=== PATIENT | female | born 1980 | race Caucasian/White ===

== ENCOUNTER 2017-05-17 14:21 | Emergency (ER) | payer MEDICAID ==
--- NOTE | 2017-05-17 14:37 | ED Physician Documentation ---
PD HPI HEADACHE - Stated complaint Stated Complaint: HEADACHE - Chief complaint Chief Complaint: Neuro - History obtained from History obtained from: Patient - History of Present Illness Timing - onset: Yesterday (has had sinus pressure and drainage for few months, with Augmentin and Flonase courses couple of times without improvement. Has worse sinus pain the past couple days, left sides periorbital and maxillary. With also some headache left sided, worse than migraines, but still with light sensitive component. No visual changes, fevers, focal deficits.) Timing - onset during: Light activity Timing - duration: Days Timing - details: Gradual onset, Waxing and waning Worst headache ever?: No: Worst headache ever? Location: Front (maxillary and periorbital), Left Quality: Throbbing, Aching Associated symptoms: Nausea, Vomiting (today). No: Fever, Weakness, Numbness, Eye pain, Vision changes Improved by: No: Meds (tried antiemetic she has for her mgiraines. Also OTC meds (tylenol and ibuprofen).) Worsened by: Light, Noise Contributing factors: Recent illness (sinus infection symptoms for past few months.). No: Trauma Recently seen: Clinic (a month ago, without improvement from Augmentin/Flonase.) Review of Systems Constitutional: denies: Fever, Chills, Myalgias Eyes: reports: Photophobia. denies: Loss of vision Ears: reports: Ear pain (left side). denies: Loss of hearing Nose: reports: Sinus pressure / pain. denies: Rhinorrhea / runny nose, Congestion Throat: denies: Sore throat Cardiac: denies: Chest pain / pressure, Palpitations Respiratory: denies: Dyspnea, Cough GI: reports: Nausea, Vomiting (today). denies: Diarrhea Skin: denies: Rash, Lesions Neurologic: reports: Headache. denies: Focal weakness, Numbness, Near syncope, Altered mental status, Head injury Endocrine: denies: Weight loss Immunocompromised: denies: Immunocompromised PD PAST MEDICAL HISTORY - Past Medical History Neuro: Headache/migraine Musculoskeletal: Osteoarthritis - Past Surgical History Past Surgical History: No - Present Medications Home Medications: Ambulatory Orders Medication Instructions Recorded Confirmed Azithromycin [Zithromax] 250 mg PO DAILY #6 tablet 05/17/17 Bcp 05/17/17 Cetirizine [ZyrTEC] 10 mg PO DAILY #20 tablet 05/17/17 Dexamethasone [Decadron] 4 mg PO DAILY #5 tablet 05/17/17 Oxycodone HCl/Acetaminophen 1 each PO Q6H PRN #15 tablet 05/17/17 [Percocet 5-325 mg Tablet] - Allergies Allergies/Adverse Reactions: Allergies Allergy/AdvReac Type Severity Reaction Status Date / Time Sulfa (Sulfonamide Allergy Intermediate Respiratory Verified 12/24/13 13:14 Antibiotics) acetaminophen [From Vicodin] AdvReac Mild Nausea Verified 12/24/13 13:14 hydrocodone bitartrate * AdvReac Mild Nausea Verified 12/24/13 13:14 [From Vicodin] - Social History Does the pt smoke?: Yes Smoking Status: Current every day smoker Does the pt drink ETOH?: No Does the pt have substance abuse?: No PD ED PE NORMAL - Vitals Vital signs reviewed: Yes - General General: Alert and oriented X 3, No acute distress, Well developed/nourished - HEENT HEENT: Ears normal, Moist mucous membranes, Pharynx benign, Dentition benign, Other (left maxillary sinus tender to percussion) - Neck Neck: Supple, no meningeal sign, No adenopathy - Cardiac Cardiac: RRR, No murmur - Respiratory Respiratory: Clear bilaterally - Abdomen Abdomen: Soft, Non tender - Derm Derm: Normal color, Warm and dry, No rash - Extremities Extremities: No deformity, Normal ROM s pain - Neuro Neuro: Alert and oriented X 3, No motor deficit, No sensory deficit, Normal speech Results - Vitals Vitals: Vital Signs - 24 hr 05/17/17 05/17/17 14:26 16:46 Temperature 36.4 C L Heart Rate 90 67 Respiratory 18 16 Rate Blood Pressure 116/77 122/71 O2 Saturation 100 98 Oxygen O2 Source Room air PD MEDICAL DECISION MAKING - ED course Complexity details: reviewed results, considered differential (seems like sinus focally left maxillary, and likely some component of migraine too today. Normal neuro. I did not see need for imaging at this time. ), d/w patient Departure - Departure Disposition: 01 Home, Self Care Clinical Impression: Sinusitis, acute maxillary Qualifiers: Recurrence: non-recurrent Qualified Code(s): J01.00 - Acute maxillary sinusitis , unspecified Migraine headache without aura Qualifiers: Status migrainosus presence: without status migrainosus Intractability: not intractable Qualified Code(s): G43.009 - Migraine without aura, not intractable , without status migrainosus Condition: Stable Record reviewed to determine appropriate education?: Yes Instructions: ED Sinusitis Abx Tx Follow-Up: Zehra Vazquez ARNP [Primary Care Provider] - Prescriptions: Dexamethasone [Decadron] 4 mg PO DAILY #5 tablet Oxycodone HCl/Acetaminophen [Percocet 5-325 mg Tablet] 1 each PO Q6H PRN #15 tablet PRN Reason: Pain Azithromycin [Zithromax] 250 mg PO DAILY #6 tablet Cetirizine [ZyrTEC] 10 mg PO DAILY #20 tablet Comments: Saline nose spray or drops to ensure the passageways days clear. Dexamethasone steroid daily for 5 more days to decrease sinus inflammation. Azithromycin antibiotic as directed. Cetirizine antihistamine to decrease some of the fluid and inflammation. Add Tylenol or pain medicine if needed for pain. your medicine for nausea as needed. Recheck if not improving over the next few days. Discharge Date/Time: 05/17/17 16:46
[2017-05-17] MEDS ORDERED: KETOROLAC 60 MG/2 ML VIAL IM STA (15:11)
[2017-05-17] MEDS ORDERED: PROMETHAZINE 25 MG/1 ML VIAL IM STA (15:12)
[2017-05-17] MEDS ORDERED: DEXAMETHASONE 10 MG/ML VIAL PO STA (15:12)
[2017-05-17] MEDS ORDERED: HYDROmorphone 1 MG/ML SYRINGE IM STA (15:12)
[2017-05-17] MEDS ORDERED: DEXAMETHASONE 10 MG/ML VIAL ONE (15:39)
[2017-05-17] MEDS ORDERED: HYDROmorphone 1 MG/ML SYRINGE ONE (15:39)
[2017-05-17] MEDS ORDERED: KETOROLAC 30 MG/ML VIAL ONE (15:39)
[2017-05-17] MEDS ORDERED: PROMETHAZINE 25 MG/1 ML VIAL ONE (15:40)
[2017-05-17] MEDS ORDERED: CHERRY SYRUP 10 ML UDC PO ONE (15:40)
[2017-05-17 16:47] VITALS: BP 122/71
== END 2017-05-17 16:46 | disposition home or self-care (01) ==
LOC: ED 14:21
DX: J01.00 Acute maxillary sinusitis, unspecified (principal); G43.009 Migraine without aura, not intractable, without status migrainosus; M19.90 Unspecified osteoarthritis, unspecified site; F17.200 Nicotine dependence, unspecified, uncomplicated
CPT/HCPCS: 96372; 99283; 99284; A9270; J1170

== ENCOUNTER 2018-03-03 09:49 | Emergency (ER) | payer SELFPAY ==
[2018-03-03 09:59] VITALS: BP 145/90
[2018-03-03] MEDS ORDERED: DEXAMETHASONE 10 MG/ML VIAL PO STA (10:39)
--- NOTE | 2018-03-03 10:39 | ED Physician Documentation ---
PD HPI NECK PAIN - Stated complaint Stated Complaint: H/A,NECK PX - Chief complaint Chief Complaint: General - History obtained from History obtained from: Patient - History of Present Illness Timing - onset: How many weeks ago (3) Timing - details: Still present, Waxing and waning Pain level now: 7 Quality: Aching Associated symptoms: No: Fever, Weakness, Numbness Improves with: Nothing Similar symptoms before: Diagnosis (She reports having similar symptoms 1 year ago when she was diagnosed with sinusitis.) - Additional information Additional information: The patient is a 37-year-old female who complains of headache that has been waxing and waning for the past 3 weeks. Her headache is in the frontal region, as well as occipital region. She also reports aching in her neck, and fatigue. She reports intermittent nausea, without vomiting. She has used ibuprofen and Percocet without relief. She denies fever, visual disturbance, numbness or weakness. She has a history of migraine headaches, but this feels different from her migraines. It feels similar to symptoms she had one year ago when she was treated for sinusitis. She also reports a history of "lumps" at the base of her skull. She underwent CT scan for evaluation of these in 2016, and review of the study reveals reactive lymph nodes. Review of Systems Constitutional: denies: Fever Eyes: denies: Photophobia Ears: denies: Ear pain, Tinnitus/ringing Nose: reports: Sinus pressure / pain. denies: Congestion Throat: denies: Dental pain / toothache, Sore throat Cardiac: denies: Chest pain / pressure Respiratory: denies: Dyspnea, Cough GI: reports: Nausea (Intermittently.). denies: Abdominal Pain, Vomiting : denies: Dysuria Skin: denies: Rash Musculoskeletal: reports: Neck pain. denies: Extremity pain Neurologic: reports: Headache. denies: Focal weakness, Numbness PD PAST MEDICAL HISTORY - Past Medical History Neuro: Headaches, Migraines Musculoskeletal: Osteoarthritis - Past Surgical History Past Surgical History: No - Present Medications Home Medications: Ambulatory Orders Medication Instructions Recorded Confirmed Bcp 05/17/17 Azithromycin [Zithromax] 250 mg PO DAILY #6 tablet 03/03/18 Dexamethasone 4 mg PO DAILY #5 tablet 03/03/18 - Allergies Allergies/Adverse Reactions: Allergies Allergy/AdvReac Type Severity Reaction Status Date / Time Sulfa (Sulfonamide Allergy Intermediate Respiratory Verified 12/24/13 13:14 Antibiotics) acetaminophen [From Vicodin] AdvReac Mild Nausea Verified 12/24/13 13:14 hydrocodone bitartrate * AdvReac Mild Nausea Verified 03/03/18 09:59 [From Vicodin] - Social History Does the pt smoke?: Yes Smoking Status: Current every day smoker Does the pt drink ETOH?: Yes Does the pt have substance abuse?: No Substance Use and Type: Marijuana PD ED PE NORMAL - Vitals Vital signs reviewed: Yes (Initially hypertensive.) - General General: Alert and oriented X 3, Well developed/nourished - HEENT HEENT: Atraumatic, PERRL, EOMI, Ears normal, Pharynx benign, Dentition benign, Other (Fundi with sharp disc margins. Tenderness to percussion over the maxillary sinuses.) - Neck Neck: Supple, no meningeal sign, No bony TTP, No adenopathy, No JVD, Other ( There is mild tenderness to palpation in the paracervical musculature, with muscle spasms noted. No significant posterior cervical adenopathy.) - Cardiac Cardiac: RRR, No murmur - Respiratory Respiratory: No respiratory distress, Clear bilaterally - Abdomen Abdomen: Soft, Non tender - Back Back: No CVA TTP - Derm Derm: No rash - Extremities Extremities: No edema, No calf tenderness / cord - Neuro Neuro: Alert and oriented X 3, parimutuel cashier 2-12 intact, No motor deficit, No sensory deficit Results - Vitals Vitals: Oxygen O2 Source Room air PD MEDICAL DECISION MAKING - ED course Complexity details: reviewed old records, re-evaluated patient, considered differential, d/w patient ED course: The patient's headache is most likely due to sinusitis. There is also a component of cervical muscle tension. Her presentation does not suggest meningitis, intracranial hemorrhage, or temporal arteritis. Treatment in the emergency department included administration of dexamethasone 10 mg orally. She is being discharged with prescription for Zithromax and dexamethasone. I discussed with her the expected course of illness, treatment and outpatient follow-up, as well as potentially worrisome signs or symptoms that should prompt reevaluation in the emergency department. - Sepsis Event Vital Signs: Oxygen O2 Source Room air Departure - Departure Disposition: 01 Home, Self Care Clinical Impression: Neck muscle spasm Sinusitis, acute maxillary Qualifiers: Recurrence: recurrent Qualified Code(s): J01.01 - Acute recurrent maxillary sinusitis Condition: Stable Instructions: ED Sprain Strain Neck, ED Sinusitis Abx Tx Follow-Up: Zehra Vazquez ARNP [Credentialed Staff Provider] - Prescriptions: Azithromycin [Zithromax] 250 mg PO DAILY #6 tablet Dexamethasone 4 mg PO DAILY #5 tablet Comments: Drink plenty of fluids. Take azithromycin daily as prescribed. Take dexamethasone once daily as prescribed. Try to stop smoking cigarettes. Follow up with your primary physician within 2 weeks. Call to schedule appointment. Return to the emergency department if you develop increasing pain, increasing difficulty breathing, or otherwise worsening symptoms. Discharge Date/Time: 03/03/18 10:51
[2018-03-03] MEDS ORDERED: CHERRY SYRUP 10 ML UDC PO ONE (10:55)
== END 2018-03-03 10:51 | disposition home or self-care (01) ==
LOC: ED 09:49
DX: J01.01 Acute recurrent maxillary sinusitis (principal); M62.838 Other muscle spasm; M19.90 Unspecified osteoarthritis, unspecified site; F17.200 Nicotine dependence, unspecified, uncomplicated
CPT/HCPCS: 99283; A9270

== ENCOUNTER 2022-09-21 11:02 | Outpatient (CLI) | payer OTHER ==
--- NOTE | 2022-09-21 17:06 | Ultrasound Report ---
PROCEDURE: Pelvic w/Transvaginal INDICATIONS: PELVIC PAIN TECHNIQUE: Real-time scanning was performed of the pelvic organs, with image documentation. Additional endovagi nal scanning was necessary due to incomplete visualization of the adnexal and endometrial structures by transabdominal scanning. COMPARISON: None. FINDINGS: Uterus: Uterus is anteverted and normal in size at 6.0 x 4.5 x 3.6 cm. The myometrium is homogeneou s. The endometrium measures 8 mm in combined thickness. Simple nabothian cysts are noted measuring up to 0.7 cm in size. Ovaries: The right ovary measures 2.1 x 1.5 x 1.6 cm, with a calculated ovarian volume of 2.4 cc. T he left ovary measures 2.9 x 2.5 x 2.3 cm, with a calculated ovarian volume of 8.7 cc. There is a mi ldly complicated cysts in the left ovary measuring 2.4 x 1.4 x 2.0 cm. There is also a complicated cy st in the right ovary measuring 1.7 x 1.2 x 1.2 cm. The ovaries have an otherwise unremarkable sonogr aphic appearance. Less than 12 follicles can be seen in each ovary. No adnexal masses are seen. Other: No pathologic free abdominal or pelvic fluid. IMPRESSION: No acute sonographic abnormalities. Mildly complicated bilateral ovarian cysts. Recommend follow-up pelvic ultrasound in 6-12 weeks to do cument stability versus resolution. Reviewed by: Claude Morin MD on 09/21/2022 5:05 PM PST Approved by: Claude Morin MD on 09/21/2022 5:05 PM PST Station ID: [id number]
== END 2022-09-21 11:03 | disposition home or self-care (01) ==
LOC: DI 11:02
PROVIDERS: ATTEND Nurse Practitioner
DX: R10.2 Pelvic and perineal pain (principal); N83.202 Unspecified ovarian cyst, left side; N83.201 Unspecified ovarian cyst, right side

== ENCOUNTER 2022-11-23 15:41 | Outpatient (CLI) | payer OTHER ==
--- NOTE | 2022-11-24 12:44 | Ultrasound Report ---
PROCEDURE: Pelvic w/Transvaginal INDICATIONS: HIST OF OVARIAN CYST TECHNIQUE: Real-time scanning was performed of the pelvic organs, with image documentation. Additional endovagi nal scanning was necessary due to incomplete visualization of the adnexal and endometrial structures by transabdominal scanning. COMPARISON: 09/21/2022 FINDINGS: Uterus: Uterus is anteverted and normal in size at 7.1 x 3.2 x 4.4 cm. The myometrium is homogeneou s. The endometrium measures 5.8 mm in combined thickness. Ovaries: The right ovary measures 2.8 x 2.0 x 2.0 cm, with a calculated ovarian volume of 6.2 cc. T he left ovary measures 2.5 x 1.3 x 2.0 cm, with a calculated ovarian volume of 3.0 cc. The ovaries h ave a normal sonographic appearance. There is a 2.5 cm right ovarian simple cyst and 1.9 cm right paraovarian simple cyst. Previous left o varian cyst has resolved. Both ovaries have appropriate echotexture and vascularity. No adnexal mass es are seen. Other: No pathologic free abdominal or pelvic fluid. IMPRESSION: Left ovarian cyst has resolved. Right ovarian/adnexal simple cysts. No free fluid Reviewed by: Dallas Butler MD on 11/24/2022 11:43 AM AKST Approved by: Dallas Butler MD on 11/24/2022 11:43 AM AKST Station ID: [id number]
== END 2022-11-23 15:42 | disposition home or self-care (01) ==
LOC: DI 15:41
PROVIDERS: ATTEND Nurse Practitioner
DX: Z09 Encounter for follow-up examination after completed treatment for conditions other than malignant neoplasm (principal); Z87.42 Personal history of other diseases of the female genital tract; N83.201 Unspecified ovarian cyst, right side